=== PATIENT | male | born 1955 | race American Indian/Alaskan Native ===

== ENCOUNTER 2017-08-16 14:07 | Emergency (ER) | payer BC, OTHER ==
[2017-08-16] MEDS ORDERED: Sodium Chloride 0.9% 1,000 ML IV ONE (15:53)
[2017-08-16] MEDS ORDERED: Sodium Chloride 0.9% 1,000 ML ONE (16:26)
[2017-08-16 16:27] LABS: BASO # 0.1 K/uL (0.0-0.2); BASO % 0.6 % (0.0-2.0); HEMOGLOBIN 15.5 g/dL (12.0-18.0); LYMPH # 0.5 K/uL (1.0-4.3); LYMPH % 4.4 % (20.0-40.0); MEAN CELL VOLUME 105.2 fL (80.0-94.0); MEAN CORPUSCULAR HEMOGLOBIN 35.8 pg (27.0-31.0); MEAN PLATELET VOLUME 10.4 fL (7.2-11.7); MONO # 0.3 K/uL (0.0-0.8); MONO % 2.4 % (0.0-10.0); NEUT # 10.7 K/uL (1.8-7.0); NEUT % 92.6 % (50.0-75.0); PLATELET COUNT 181 K/uL (130-400); RBC 4.33 Mil/uL (4.40-5.90); RED CELL DISTRIBUTION WIDTH 12.6 % (11.5-14.5); WHITE BLOOD COUNT 11.5 K/uL (4.8-10.8)
[2017-08-16 16:39] LABS: ALB/GLOB RATIO 1.2 (1.0-2.1); ALBUMIN 4.3 g/dL (3.5-5.0); ALT/SGPT 40 U/L (21-72); AST/SGOT 30 U/L (17-59); BLOOD UREA NITROGEN 18 mg/dL (9-20); CALCIUM 9.1 mg/dl (8.6-10.4); GFR AFRICAN-AMERICAN > 60; GFR NON-AFRICAN AMERICAN > 60; LIPASE 27 U/L (23-300)
--- NOTE | 2017-08-16 16:45 | C.PDOC ---
History Of Present Illness <Brenda Bryant - Last Filed: 08/16/17 19:01> <Drew Lynch - Last Filed: 08/16/17 21:28> 62 y/o male presents to ED with complaints of abdominal pain, vomiting, sweats, and chills since this morning. Patient states he did not take any medications for the symptoms. Denies abdominal pain, diarrhea, back pain, urinary symptoms, chest pain or any other complaints at this time. (Brenda Bryant) History Per: Patient History/Exam Limitations: no limitations Onset/Duration Of Symptoms: Hrs Current Symptoms Are (Timing): Still Present <Brenda Bryant - Last Filed: 08/16/17 19:01> <Drew Lynch - Last Filed: 08/16/17 21:28> Time Seen by Provider: 08/16/17 15:25 Chief Complaint (Nursing): GI Problem Past Medical History Family History: States: Unknown Family Hx - Social History Hx Alcohol Use: No Hx Substance Use: No - Immunization History Hx Tetanus Toxoid Vaccination: No Hx Influenza Vaccination: Yes Hx Pneumococcal Vaccination: No <Brenda Bryant - Last Filed: 08/16/17 19:01> Vital Signs: Last Vital Signs Temp 98.4 F 08/16/17 19:38 Pulse 80 08/16/17 19:38 Resp 18 08/16/17 19:38 BP 177/78 H 08/16/17 19:38 Pulse Ox 98 08/16/17 19:38 Review Of Systems Constitutional: Positive for: Chills. Negative for: Fever Gastrointestinal: Positive for: Vomiting, Abdominal Pain Musculoskeletal: Negative for: Back Pain Skin: Negative for: Rash Neurological: Negative for: Weakness, Numbness <Brenda Bryant - Last Filed: 08/16/17 19:01> Physical Exam - Physical Exam Appears: Non-toxic, Other (uncomfortable) Skin: Normal Color, Warm, Dry, No Rash Head: Atraumatic, Normacephalic Eye(s): bilateral: Normal Inspection, EOMI Oral Mucosa: Moist Neck: Normal ROM, Supple Chest: Symmetrical Cardiovascular: Rhythm Regular Respiratory: Normal Breath Sounds, No Rales, No Rhonchi, No Wheezing Gastrointestinal/Abdominal: Soft, No Tenderness, No Guarding, No Rebound Back: No CVA Tenderness Extremity: Normal ROM, Capillary Refill (<2 seconds) Neurological/Psych: Oriented x3 <Brenda Bryant - Last Filed: 08/16/17 19:01> ED Course And Treatment - Laboratory Results Result Diagrams: 08/16/17 16:21 08/16/17 16:21 O2 Sat by Pulse Oximetry: 100 (RA) Pulse Ox Interpretation: Normal Progress Note: On re evaluation patient states he feels better, ordered PO challenge. On re-evaluation, patient vomited. Pt requests additional medication. Administered reglan and Morphine, CT scan ordered. Case endorsed to Dr Lynch pending re-evlaution and CT. <Brenda Bryant - Last Filed: 08/16/17 19:01> - Laboratory Results Result Diagrams: 08/16/17 16:21 08/16/17 16:21 <Drew Lynch - Last Filed: 08/16/17 21:28> Disposition - Disposition Disposition Time: 19:04 <Brenda Bryant - Last Filed: 08/16/17 19:01> Counseled Patient/Family Regarding: Diagnosis - Disposition Disposition Time: 21:28 - POA Present On Arrival: None <Drew Lynch - Last Filed: 08/16/17 21:28> - Disposition Referrals: [facility] [Outside] Condition: STABLE Prescriptions: Dicyclomine [Dicyclomine HCl] 10 mg PO QID #14 cap Instructions: Gastroenteritis (ED) Forms: 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 - Scribe Statement The provider has reviewed the documentation as recorded by the Scribe <Brenda Bryant - Last Filed: 08/16/17 19:01> <Drew Lynch - Last Filed: 08/16/17 21:28> - Scribe Statement Zechariah Jimenez All medical record entries made by the Scribe were at my direction and personally dictated by me. I have reviewed the chart and agree that the record accurately reflects my personal performance of the history, physical exam, medical decision making, and the department course for this patient. I have also personally directed, reviewed, and agree with the discharge instructions and disposition. (Brenda Bryant) Physician Patient Turnover Patient Signed Over To: Drew Lynch Handoff Comments: Pending CT scan <Brenda Bryant - Last Filed: 08/16/17 19:01>
[2017-08-16 17:01] LABS: LYMPHOCYTE 5 % (20-40); MONOCYTE 3 % (0-10); NEUTROPHIL 92 % (50-75); PLATELET ESTIMATE NORMAL (NORMAL); TOTAL CELLS COUNTED 100
[2017-08-16 17:54] VITALS: RESP 18
[2017-08-16] MEDS ORDERED: Morphine 4 MG/ML VIAL ONE (18:33)
[2017-08-16 18:57] LABS: SQUAMOUS EPITHIAL < 1 /hpf (0-5); URINE BILIRUBIN NEGATIVE (NEGATIVE); URINE BLOOD NEGATIVE (NEGATIVE); URINE CLARITY Clear (Clear); URINE COLOR Yellow (YELLOW); URINE GLUCOSE (UA) NORMAL (Normal); URINE LEUKOCYTE ESTERASE NEG Leu/uL (Negative); URINE NITRATE NEGATIVE (NEGATIVE); URINE PROTEIN 1+ mg/dL (NEGATIVE); URINE UROBILINOGEN NORMAL mg/dL (0.2-1.0)
[2017-08-16] MEDS ORDERED: Iohexol 300 100 ML IJ ONE (18:59)
--- NOTE | 2017-08-16 19:48 | CT ---
EXAM: CT Abdomen and Pelvis With Intravenous Contrast EXAM DATE/TIME: 08/16/2017 6:26 PM CLINICAL HISTORY: 62 years old, male; Pain; Abdominal pain; Periumbilical; Additional info: Abd pain TECHNIQUE: Axial computed tomography images of the abdomen and pelvis with intravenous contrast. All CT scans at this facility use one or more dose reduction techniques, viz.: automated exposure control; ma/kV adjustment per patient size (including targeted exams where dose is matched to indication; i.e. head); or iterative reconstruction technique. Coronal and sagittal reformatted images were created and reviewed. CONTRAST: 100 mL of omnipaque 300 administered intravenously. COMPARISON: There are no prior studies for comparison. FINDINGS: Lower thorax: Heart size is normal. There is dependent atelectasis at the lung bases ABDOMEN: Liver: There is fatty infiltration of the liver. Gallbladder and bile ducts: unremarkable Pancreas: Pancreas is mildly atrophic. Spleen: unremarkable Adrenals: unremarkable Kidneys and ureters: unremarkable Stomach and bowel: Stomach is incompletely distended which accentuates the gastric wall.Bowel rotation is normal. Proximal small bowel is mildly distended with fluid and air. Distention decreases distally. Ileocecal region is unremarkable. Appendix and terminal ileum are unremarkable.Colon is incompletely distended which limits evaluation. There is scattered diverticulosis in Appendix: See stomach and bowel PELVIS: Bladder: unremarkable Reproductive: Prostate is mildly enlarged.Seminal vesicles have the expected configuration. ABDOMEN and PELVIS: Intraperitoneal space: There is no free air or free fluid. Bones/joints: There are degenerative changes in the osseus structures. Soft tissues: There is a very small fat containing umbilical hernia. Vasculature: There are vascular calcifications. Lymph nodes: There is no pathologic adenopathy. IMPRESSION: Fatty liver, no acute solid visceral or bowel abnormality; no appendicitis or diverticulitis Additional nonemergent findings as described above.
[2017-08-16 21:43] VITALS: BP 169/90; PULSE 79; TEMP 98; O2SAT 99
== END 2017-08-16 21:42 | disposition home or self-care (01) ==
LOC: C.ER 14:07
DX: K52.9 Noninfective gastroenteritis and colitis, unspecified (principal)
CPT/HCPCS: 74177; 80053; 81001; 83690; 85025; 96361; 96374; 96375; 99285; C9113; J1885; J2270; J2765; J7040; Q9967